=== PATIENT | male | born 1975 | race American Indian/Alaskan Native ===

== ENCOUNTER 2021-03-16 21:17 | Emergency (ER) | payer BC | END 2021-03-16 22:49 | disposition left against medical advice (07) | LOC: DL.ED 21:17 | DX: Z53.21 Procedure and treatment not carried out due to patient leaving prior to being seen by health care provider (principal) ==

== ENCOUNTER 2022-09-23 01:37 | Emergency (ER) | payer BC ==
[2022-09-23] MEDS ORDERED: Sodium Chloride 0.9% 10 ML Syringe FLUSH PRN (02:28)
[2022-09-23] MEDS ORDERED: GI Cocktail Oral Solution 30 ML PO ONE (02:55)
[2022-09-23 03:09] LABS: ANION GAP 11.2 mEq/L (7-13); CHLORIDE,CL 103 mmol/L (98-107); ESTIMATED GFR 66 mL/min (>=60); SODIUM,NA 137 mmol/L (136-145)
== END 2022-09-23 04:32 | disposition home or self-care (01) ==
LOC: DL.ED 01:37
DX: K21.9 Gastro-esophageal reflux disease without esophagitis (principal); I25.2 Old myocardial infarction; E11.9 Type 2 diabetes mellitus without complications; Z88.8 Allergy status to other drugs, medicaments and biological substances; Z79.82 Long term (current) use of aspirin; Z79.84 Long term (current) use of oral hypoglycemic drugs; Z79.899 Other long term (current) drug therapy
CPT/HCPCS: 36415; 80053; 83605; 84443; 84484; 85025; 86140; 93005; 99285; A9270

== ENCOUNTER 2023-10-16 05:06 | Day surgery (SDC) | payer BC ==
[2023-10-16] MEDS ORDERED: fentaNYL 100 MCG/2 ML SDV IV ONE ×3 (05:07→06:28)
[2023-10-16] MEDS ORDERED: Midazolam 1 MG/ML 2 ML SDV IV ONE ×7 (05:07→06:36)
[2023-10-16] MEDS ORDERED: Dextrose 5%-0.45% NaCl 1,000 ML IV SCH (06:00)
[2023-10-16] MEDS ORDERED: Midazolam 1 MG/ML 2 ML SDV ONE (06:07)
[2023-10-16] MEDS ORDERED: fentaNYL 100 MCG/2 ML SDV ONE (06:08)
== END 2023-10-16 08:07 | disposition home or self-care (01) ==
LOC: DL.ENDO 05:06
PROVIDERS: ATTEND Internal Medicine Gastroenterology
DX: Z12.11 Encounter for screening for malignant neoplasm of colon (principal); E11.9 Type 2 diabetes mellitus without complications; I10 Essential (primary) hypertension; E78.5 Hyperlipidemia, unspecified; I25.10 Atherosclerotic heart disease of native coronary artery without angina pectoris; F41.1 Generalized anxiety disorder; E66.09 Other obesity due to excess calories; Z68.36 Body mass index [BMI] 36.0-36.9, adult
CPT/HCPCS: J2250; J3010; J7042

== ENCOUNTER 2024-04-16 10:18 | Emergency (ER) | payer BC ==
[2024-04-16] MEDS: Ketorolac 30 MG/ML SDV IM ONE (11:30)
[2024-04-16] MEDS: Acetaminophen 500 MG Tab PO ONE (11:30)
== END 2024-04-16 11:30 | disposition home or self-care (01) ==
LOC: DL.ED 10:18
DX: S99.911A Unspecified injury of right ankle, initial encounter (principal); I10 Essential (primary) hypertension; I25.2 Old myocardial infarction; K21.9 Gastro-esophageal reflux disease without esophagitis; E11.9 Type 2 diabetes mellitus without complications; Z88.8 Allergy status to other drugs, medicaments and biological substances; Z79.82 Long term (current) use of aspirin; Z79.899 Other long term (current) drug therapy; Z79.84 Long term (current) use of oral hypoglycemic drugs; Z86.16 Personal history of COVID-19; W01.0XXA Fall on same level from slipping, tripping and stumbling without subsequent striking against object, initial encounter
CPT/HCPCS: 73610; 96372; 99283; A9270; J1885

== ENCOUNTER 2025-02-18 19:36 | Emergency (ER) | payer BC ==
[2025-02-18] MEDS ORDERED: Sodium Chloride 0.9% 10 ML Syringe FLUSH PRN (19:56)
[2025-02-18] MEDS: Aspirin 81 MG Tab.Chew PO ONE (20:16)
[2025-02-18] MEDS: Nitroglycerin 0.4 MG Tab.SL SL PRN (20:17)
[2025-02-18 20:21] LABS: BASOPHILS PERCENT AUTO 0.3 % (0.0-1.0); HEMATOCRIT 46.9 % (40.0-54.0); HEMOGLOBIN 15.8 g/dL (14.0-18.0); LYMPHOCYTES PERCENT AUTO 14.6 % (20.5-50.1); MEAN CORPUSCULAR HGB CONC 33.7 g/dL (33.0-35.0); MEAN CORPUSCULAR VOLUME 92.1 fL (80-100); MONOCYTES PERCENT AUTO 8.2 % (2-8); NEUTROPHILS PERCENT AUTO 76.9 % (42.2-75.2); PLATELET COUNT,PLT 222 10^3/uL (150-450); RED BLOOD CELL COUNT 5.09 10^6/uL (4.6-6.2); WHITE BLOOD CELL COUNT,WBC 9.3 10^3/uL (5.0-10.0)
[2025-02-18 20:45] LABS: A/G RATIO 1.6; ALANINE AMINOTRANSFERASE,ALT 56 U/L (16-63); ALBUMIN 4.2 g/dL (3.4-5.0); ALKALINE PHOSPHATASE 76 U/L (46-116); ANION GAP 13.9 mEq/L (7-13); ASPARTATE AMNIOTRANSFERASE,AST 29 U/L (15-37); B-TYPE NATRIURETIC PEPTIDE,BNP 11 pg/ml (0-100); BILIRUBIN TOTAL 1.3 mg/dL (0.2-1.0); BLOOD UREA NITROGEN,BUN 21 mg/dL (7-18); BUN/CREATININE RATIO 13.6 (No establ ref range); CALCIUM 9.3 mg/dL (8.5-10.1); CARBON DIOXIDE,CO2 25 mmol/L (21-32); CHLORIDE,CL 99 mmol/L (98-107); CREATININE 1.54 mg/dL (0.70-1.30); ESTIMATED GFR 54 mL/min (>=60); GLUCOSE RANDOM 152 mg/dL (70-99); POTASSIUM,K 3.9 mmol/L (3.5-5.1); PROTEIN TOTAL,TP 6.9 g/dL (6.4-8.2); PROTHROMBIN TIME 10.4 SEC (9.0-12.0); PTT,PARTIAL THROMBOPLSTIN TIME 25.4 SEC (22.0-34.0); SODIUM,NA 134 mmol/L (136-145)
[2025-02-18] MEDS: Lactated Ringers 1,000 ML IV ONE (21:50)
[2025-02-18] MEDS: Cyclobenzaprine 10 MG Tab PO ONE (23:27)
[2025-02-18] MEDS: Take Home: Cyclobenzaprine 10 MG Tab, 4 Tab Pack PO ONE (23:28)
[2025-02-18] MEDS: Ketorolac 30 MG/ML SDV IVPUSH ONE (23:28)
== END 2025-02-18 23:35 | disposition home or self-care (01) ==
LOC: DL.ED 19:36
DX: M54.12 Radiculopathy, cervical region (principal); M62.838 Other muscle spasm; R07.89 Other chest pain; I77.89 Other specified disorders of arteries and arterioles; I10 Essential (primary) hypertension; K21.9 Gastro-esophageal reflux disease without esophagitis; E66.9 Obesity, unspecified; E11.9 Type 2 diabetes mellitus without complications; Z88.8 Allergy status to other drugs, medicaments and biological substances; Z79.82 Long term (current) use of aspirin; Z79.84 Long term (current) use of oral hypoglycemic drugs; Z79.899 Other long term (current) drug therapy; Z86.16 Personal history of COVID-19
CPT/HCPCS: 36415; 71045; 80053; 83735; 83880; 84484; 85025; 85610; 85730; 93005; 93010; 96361; 96374; 99284; 99285; A9270; J1885; J7120